=== PATIENT | female | born 1965 | race Caucasian/White ===

== ENCOUNTER 2025-01-06 13:59 | Outpatient (REF) | payer OTHER, SELFPAY ==
[2025-01-06 14:37] LABS: Appearance Urine Clear; Color Urine Yellow; Glucose Urine UA Negative (Negative); Leukocyte Esterase Urine Negative (Negative); Nitrite Urine Negative (Negative); PH 6.5 (5.0-9.0); Urine Blood Negative (Negative); Urine Ketones Negative (Negative); Urine Protein Negative (Neg-Trace)
[2025-01-06 14:40] LABS: Bacteria Urine None Seen (None Seen); Hyaline Casts Urine 0-2 /LPF (0-2); RBC Urine 0-2 /HPF (0-2); Squamous Epithelial Cell Urine 0-2 /HPF (0-2); WBC Urine 0-5 /HPF (0-5)
--- OUTSIDE RECORDS SUMMARY | 2025-01-06 15:21 | XMS_ITS | Patient Health Record ---
Author Organization [facility] Address [address] [place] [address] Care Team Providers Care Cleaning Handyman Name Role Phone AVNI BANSAL Primary Care Provider Unavailab antony HansonAnahi Unavailable [phone] Allergies No Known Allergies Results Component Value Reference Range Notes Urinalysis Reviewed date:12/16/2024 04:35:41 PM Interpretation: Performing Lab: Notes/Report: NITRITE Positive PH 5.0 PROTEIN Moderate S.G 1.005 WBC Large GLUCOSE Neg KETONES Neg UROBILINOGEN Neg BILIRUBIN Neg BLOOD Large ++ Urinalysis, Complete-[id number] Reviewed date:12/18/2024 08:10:20 PM Interpretation: Performing Lab:Donta Troncoso, [address] [place] [address], Phone - [phone], Director - Mateus Notes/Report: Clinical Information:SRC: URINE Clinical Information:SRC: URINE Specific [place] 1.008 1.005-1.030 pH 6.0 5.0-7.5 Urine-Color Yellow Yellow Appearance Cloudy Clear WBC Esterase 3+ Negative Protein Trace Negative/Trace Glucose Negative Negative Ketones Negative Negative Occult Blood 2+ Negative Bilirubin Negative Negative Urobilinogen,Semi-Qn 0.2 0.2-1.0 mg/dL Nitrite, Urine Negative Negative Microscopic Examination See below: Micr oscopic was indicated and was performed. WBC >30 0 - 5 /hpf RBC None seen 0 - 2 /hpf Epithelial Cells (non renal) None seen 0 - 10 /hpf Casts None seen None seen /lpf Bacteria Few None seen/Few Urine Culture, Routine-[id number] Reviewed date:12/18/2024 08:09:52 PM Interpretation: Performing Lab:[facility] Troncoso, [address] [facility], Phone - [phone], Director - Mateus Notes/Report: Clinical Information:SRC: URINE Clinical Information:SRC: URINE Urine Culture, Routine Final report Result 1 Escherichia coli Cefazolin with an YANCI <=16 predicts susceptibility to the oral agents cefaclor, cefdinir, cefpodoxime, cefprozil, cefuroxime, cephalexin, and loracarbef when used for therapy of uncomplicated urinary tract infections due to E. coli, Klebsiella pneumoniae, and Proteus mirabilis. 50,000-100,000 colony forming units per mL Antimicrobial Susceptibility S = Susceptible; I = Intermediate; R = Resistant P = Positive; N = Negative MICS are expressed in micrograms per mL Antibiotic RSLT#1 RSLT#2 RSLT#3 RSLT#4 Amoxicillin/Clavulanic Acid S Ampicillin S Cefazolin S Cefepime S Cefoxitin I Cefpodoxime S Ceftriaxone S Ciprofloxacin S Ertapenem S Gentamicin S Levofloxacin S Meropenem S Nitrofurantoin S Piperacillin/Tazobactam S Tetracycline S Tobramycin S Trimethoprim/Sulfa S PDF Report Reviewed date:12/18/2024 08:08:41 PM Interpretation: Performing Lab:JanellYumDotsmiriam Troncoso, [address] [facility], Phone - [phone], Director - Mateus Notes/Report: Clinical Information:SRC: URINE Urinalysis Reviewed date:03/25/2024 03:36:52 PM Interpretation: Performing Lab: Notes/Report: NITRITE NEG PH 5.0 PROTEIN NEG S.G 1.010 WBC NEG GLUCOSE NEG KETONES NEG UROBILINOGEN NEG BILIRUBIN NEG BLOOD NEG Urinalysis Reviewed date:07/28/2024 11:25:38 AM Interpretation: Performing Lab: Notes/Report: PH 6.0 PROTEIN Neg GLUCOSE Neg BLOOD Neg [id number] IGP No Culture 30 Plus Reviewed date:08/02/2024 04:07:12 PM Interpretation: Performing Lab:Donna Triana, [address], [place], Phone - [phone], [facility] Notes/Report: Clinical Information:Vaginal/Cervical, LMP: Men o [id number] Dates / Results....10/17/21 NIL, Neg HPV Other..............Post Menopausal No. of containers..01 ThinPrep Vial DIAGNOSIS: NEGATIVE FOR INTRAEPITHELIAL LESION OR MALIGNANCY. THIS SPECIMEN WAS RESCREENED PART OF OUR CARRY OUT CLERK PROGRAM. Specimen adequacy: Satisfactory for evaluation. Endocervical and/or squamous metaplastic cells (endocervical component) are present. Areas of partially obscuring inflammatory exudate are present. Clinician provided ICD10: Z0 1.419 Performed by: Lonnie Tovar, Geotechnical Engineer (ASCP) QC reviewed by: Susan giron, Geotechnical Engineer (ASCP) . . Note: The Pap smear is a screening test designed to aid in the detection of premalignant and malignant conditions of the uterine cervix. It is not a diagnostic procedure and should not be used as the sole means of detecting cervical cancer. Both false-positive and false-negative reports do occur. . Test Methodology: [facility] The Thin Prep(R) Air Bag Buffer was unable to read this specimen. Therefore a manual review was performed. HPV Aptima Negative Negative This nucleic acid amplification test detects fourteen high-risk HPV types (16,18,31,33,35,39,45,51,52 ,56,58,59,66,68) without differentiation. HPV Genotype Reflex Criteria not met, HPV Genotype not performed. PDF Report Reviewed date:08/02/2024 04:06:53 PM Interpretation: Performing Lab:Labcomiriam Ha, [address] [place] [address], [address], [place], Phone - [phone], Director - [facility] Notes/Report: Clinical Information:Vaginal/Cervical, LMP: Men o [id number] Dates / Results....10/17/21 NIL, Neg HPV Other..............Post Menopausal No. of containers..01 ThinPrep Vial Reason For Referral No Information Medications Medication SIG (Take, Route, Fr equency, Duration) Notes Start Date End Date Status Hair Vitamins Active Estroven - as directed Orally Active Multi-Vitamin - 1 tablet Orally Once a day for 30 day(s) Active LORazepam 1 MG Oral for 30 Act em Bactrim DS 800-160 MG 1 tablet Orally TW ICE A DAY for 7 days 12/16/2024 Active Social History Tobacco Use: Social History Observation Description Date Details (start date - stop date) Never Smoker NA - NA Sexual History Question Answer Notes Had sex in the past 12 months (vaginal, oral, or anal)? Yes with Men only Prevention strategies discussed: Other Tobacco use other than smoking: Question Answer Notes Are you an other tobacco user? No AUDIT-C (Standard) Question Answer Notes Did you have a drink contain ing alcohol in the past year? Yes How often did you have six o r more drinks on one occasion in the past year? Never (0 point) How many drinks did you have on a typical day when you were drinking in the past year? 1 or 2 drinks (0 point) How often did you have a dri nk containing alcohol in the past year? Monthly or less (1 point) Points 1 Interpretation Negative Tobacco Control (Standard) Question Answer Notes Tobacco use: Nonsmoker Problems Problem Type SNOMED Code ICD Code Onset Dates Problem Status W/U Status Risk Notes Problem Postmenopausal atrophic vaginitis (06871119) Postmenopausal atrophic vaginitis (N95.2) Active confirmed Problem Noninflammatory disorder of the vagina (71971851) Other specified noninflammatory disorders of vagina (N89.8) Active confirmed Problem Postmenopausal bleeding (25566689) Postmenopausal bleeding (N95.0) Active confirmed Problem Hypervitaminosis D (19410786) Hypervitaminosis D (E67.3) Active confirmed Problem Subacute and chronic vaginitis (N76.1) Active confirmed Problem Abnormal uterine bleeding (73246857674461) Abnormal uterine and vaginal bleeding, unspecified (N93.9) Active confirmed Problem Menopause (917386120) Menopausal and female climacteric states (N95.1) Active confirmed Vital Signs Temperature 97.4 degrees Fahrenheit 12/16/2024 Blood pressure diastolic 62 mm Hg 12/16/2024 Height 64 in 12/16/2024 Blood pressure systolic 106 mm Hg 12/16/2024 Weight 153 lbs 12/16/2024 BMI 26.26 kg/m2 12/16/2024 Encounters Encounter Location Date Provider Diagnosis [place] [address] [facility] [address] [address] 03/25/2024 Anahi Hanson Postmenopausal atrophic vaginitis N95.2 [place] [address] [facility] [address] [address] 07/28/2024 Anahi Hanson Encounter for gynecological examination (general) (routine) without abnormal findings Z01.419 ; Encounter for screening mammogram for malignant neoplasm of breast Z12.31 ; Other specified disorders of bone density and structure, multiple sites M85.89 and Menopausal and female climacteric states N95.1 [facility] [address] [place] [address] 12/16/2024 Anahi Hanson Urinary tract infection, site not specified N39.0 [facility] [address] [place] [address] 12/21/2024 Anahi Middletonva Urinary tract infection, site not specified N39.0 Assessments Encounter Date Diagnosis (ICD Code) Assessment Notes Treatment Notes Treatment Clinical Notes Section Notes 03/25/2024 Postmenopausal atrophic vaginitis (ICD-10 - N95.2) DISCUSSED FINDINGS AND REASSURED PAT THAT DISCHARGE WAS NOT NOTED. DISCUSSED ATROPHIC VAGINITIS AND HOW THIS CAN CAUSE SIGNIFICANT VAGINAL BURNING. RECOMMENDED INTRAVAGINAL ESTROGEN. SHE AGREED. SHE HAS NO CONTRAINDICATIONS AND ACCEPTS RISKS. RX AND INSTRUCTIONS FOR YUVAFEM WERE GIVEN. ALSO ADVISED PAT TO USE LUBRICANTS LIKE ALOE CADABRA PRIOR TO SEXUAL ACTIVITY. 07/28/2024 Encounter for gynecological examination (general) (routine) without abnormal findings (ICD-10 - Z01.419) PAP TEST WITH HPV TYPING WAS OBTAINED. 12/16/2024 Urinary tract infection, site not specified (ICD-10 - N39.0) OFFICIAL UA AND URINE C/S INCREASE FLUID INTAKE BACTRIM DS AND INSTRUCTIONS WERE GIVEN. URISTAT CALL IF NOT BETTER. 12/21/2024 Urinary tract infection, site not specified (ICD-10 - N39.0) 07/28/2024 Encounter for screening mammogram for malignant neoplasm of breast (ICD-10 - Z12.31) REGULAR MAMMOGRAMS AND SBE'S WERE RECOMMENDED. 07/28/2024 Other specified disorders of bone density and structure, multiple sites (ICD-10 - M85.89) DISCUSSED HER LAST BMD AND MILD OSTEOPENIA AND ITS IMPACT ON HER HEALTH. ADEQUATE CALCIUM AND VIT D. WEIGHT BEARING EXERCISES. REPEAT BMD THIS YEAR. 07/28/2024 Menopausal and female climacteric states (ICD-10 - N95.1) DISCUSSED MENOPAUSE AND SYMPTOMS ASSOCIATED WITH THIS. Plan Of Treatment Pending Test Test Name Order Date MAMMOGRAM, SCREENING 07/28/2024 Urinalysis 03/13/2018 Urinalysis 09/06/2020 Urinalysis 02/22/2021 ONE SWAB 07/13/2020 25OH VITAMIN D 01/09/2021 BONE DENSITY 07/28/2024 BONE DENSITY 06/08/2021 MM Digital Mammo Screening 12/13/2016 MM Digital Mammo Screening 10/17/2021 MM Digital Mammo Screening 05/06/2023 MM Digital Mammo Screening 07/28/2024 ULTRASOUND: PELVIC W/TRANSVAGINAL 2018 Urinalysis, Complete-[id number] 12/21/2024 Urine Culture, Routine-[id number] 12/21/2024 Insurance Providers Payer Name Payer Address Payer Phone Subscriber Number Group Number Insured Name Patient Relationship to Insured Coverage Start Date Coverage End Date [employer] [facility] [address] [address] [place] [address] [id number] VISHNU BUENO Self - patient is the insured Medical (General) History Medical History History ICD Code Abnormal uterine and vaginal bleeding, u nspecified N93.9 Abdominal distension (gaseous) R14.0 Other fatigue R53.83 Presence of (intrauterine) contraceptive device Z97.5 Menopausal and female climacteric states N95.1 Postmenopausal atrophic vaginitis N95.2 Postmenopausal bleeding N95.0 Hypervitaminosis D E67.3 Surgical History Surgery Date(Month/Year) 2004 Tubal Ligation Reverse Tubal 2002 Abdominoplasty 2016 Hospitalization History Reason Date(Month/Year) See Surgical Hx
== END 2025-01-06 14:00 | disposition home or self-care (01) ==
LOC: HO.LAB 13:59
PROVIDERS: PCP Nurse Practitioner Family; Visit Provider Obstetrics & Gynecology Gynecology
DX: N39.0 Urinary tract infection, site not specified (principal)
CPT/HCPCS: 81001; 87086